=== PATIENT | male | born 1970 | race Two or more races ===

== ENCOUNTER 2018-09-05 13:14 | Emergency (ER) | payer MEDICAID ==
[~2018-09-05] VITALS: Ht 177.8 cm; Wt 122.5 kg
[~2018-09-05 13:14] MED LIST: ALPRAZOLAM; ATEN50TA; ZOLP10TA
[2018-09-05 13:27] VITALS: BP 158/109
[2018-09-05] MEDS ORDERED: methylPREDNISolone SOD SUCC 125 MG/2 ML VL IM ONE (15:30)
[2018-09-05] MEDS ORDERED: KETOROLAC TROMETH 60MG/2ML VIAL IM ONE (15:30)
== END 2018-09-05 16:00 | disposition home or self-care (01) ==
LOC: ER 13:14
DX: G40.909 Epilepsy, unspecified, not intractable, without status epilepticus (principal); F41.9 Anxiety disorder, unspecified; I10 Essential (primary) hypertension; Z86.73 Personal history of transient ischemic attack (TIA), and cerebral infarction without residual deficits; Z76.0 Encounter for issue of repeat prescription
CPT/HCPCS: 96372; 99283; J1885; J2930